=== PATIENT | female | born 1980 ===

== ENCOUNTER 2017-04-28 08:36 | Day surgery (SDC) | payer OTHER ==
[2017-04-28] MEDS ORDERED: Lactated Ringer's 1,000 ML IV ONE (09:14)
[2017-04-28 09:31] VITALS: O2SAT 100
[2017-04-28 10:39] VITALS: RESP 19
[2017-04-28 11:01] VITALS: BP 143/53; PULSE 51; TEMP 97
== END 2017-04-28 11:07 | disposition home or self-care (01) ==
LOC: H.ENDO 08:36 → MERGE 08:36 → H.ENDO 11:07
PROVIDERS: ATTEND Internal Medicine Gastroenterology
DX: K64.0 First degree hemorrhoids (principal); K62.5 Hemorrhage of anus and rectum; R12 Heartburn; K31.7 Polyp of stomach and duodenum; K29.70 Gastritis, unspecified, without bleeding; E11.9 Type 2 diabetes mellitus without complications
CPT/HCPCS: 43239; 45378; 82948; 88305; J7120